=== PATIENT | male | born 1990 | race Caucasian/White ===

== ENCOUNTER 2018-08-15 21:14 | Emergency (ER) | payer MEDICAID, SELFPAY ==
[2018-08-15 21:14] VITALS: BP 147/84; PULSE 84; RESP 18; TEMP 36.6; O2SAT 97; BMI 35.7
[2018-08-15 21:20] VITALS: BP 152/70; PULSE 80; RESP 14; O2SAT 98
--- NOTE | 2018-08-15 21:36 | RAD_ITS ---
STUDY: X-RAY - UNILATERAL RIBS ( RIGHT ) WITH CHEST REASON FOR EXAM: Male, 28 years old. Fall. Lower axillary rib pain. TECHNIQUE - RIBS: 4 view(s) of the ribs. TECHNIQUE - CHEST: Single PA view of the chest. COMPARISON: None. FINDINGS - RIBS: Normal visualized ribs without a demonstrated fracture. FINDINGS - CHEST: The lungs are clear and expanded. No pneumothorax. There is no demonstrated pleural abnormality. Normal size heart. Normal mediastinum and george. Normal visualized pulmonary arteries. Normal visualized aortic arch and descending thoracic aorta. Normal visualized thoracic spine. Normal visualized ribs, clavicles, and shoulders. There is no demonstrated abnormality of the visualized soft tissue structures of the upper abdomen. RAD/Ribs Uni Min 3V w/PA Chest IMPRESSION: RIBS: Normal x-ray examination of the ribs. CHEST: Normal x-ray examination of the chest. Electronically Signed: Benjie Melo DO at 22:00 EDT Tel [phone], Service support ,
--- NOTE | 2018-08-15 21:54 | ED.DCSUM_ITS ---
- ER Visit Summary Date of Service: 08/15/18 Chief Complaint: Fall History of Present Illness: The patient is a 28 M presenting after fall. Patient states this occurred 2 weeks ago. He slipped and fell off a ramp. He states the ramp was not high off the ground. He did not hit his head or lose consciousness. He fell hitting his back. He states he later developed pain right lower chest wall. He states it is worse with coughing. He denies shortness of breath. Denies pleuritic chest pain. Denies abdominal pain. Denies other complaints. Physical Examination: Vitals are stable. Patient is afebrile. HR 80. Pulse ox 98% room air. Alert no acute distress. HEENT exam is unremarkable. Neck is supple. Lungs are clear and equal bilaterally. Right lower chest wall tenderness with no crepitus Heart is regular rate and rhythm. Abdomen is soft nontender nondistended. No guarding or rebound Extremities are unremarkable. Skin is warm and dry. No focal neurologic deficit. Remainder of exam is unremarkable. Emergency Department Course and Treatment: Right rib series shows no acute process. Patient was given an incentive spirometer. He was given prescription for Naprosyn. Advised to follow-up with his primary care physician. Advised return ED if worsening complaints. Disposition: Discharge home Impression: Rib contusion This note was generated with [employer] dictation software. It may contain incorrect words, spelling, and punctuation that were not noted in review of the chart prior to signing ED Disposition - Plan for ED Patient: Instructions: ED Contusion Rib Prescriptions: Naproxen [Naprosyn] 500 mg PO BID PRN #20 tablet Referrals: David Craven MD [Primary Care Provider] -
== END 2018-08-15 22:42 | disposition home or self-care (01) ==
LOC: ED 21:42
PROVIDERS: Emergency Provider Emergency Medicine; Family Provider Family Medicine; PCP Family Medicine
DX: S20.211A Contusion of right front wall of thorax, initial encounter (principal); W17.89XA Other fall from one level to another, initial encounter; Y93.9 Activity, unspecified; Y92.9 Unspecified place or not applicable; Y99.9 Unspecified external cause status; F17.220 Nicotine dependence, chewing tobacco, uncomplicated
CPT/HCPCS: 71101; 99282

== ENCOUNTER 2023-07-05 20:09 | Emergency (ER) | payer MEDICAID, SELFPAY ==
[2023-07-05 20:09] VITALS: BP 165/90; PULSE 83; RESP 18; TEMP 36.8; O2SAT 98; BMI 38.7
--- NOTE | 2023-07-05 20:19 | EX.ED.UPPERE ---
HPI History of Present Illness Chief Complaint: Upper Extremity Injury Detail of Chief Complaint: Right elbow pain Informant: patient Occured/Mechanism Comment: Patient states paged started after he carried groceries a couple of days ago Onset/Context/Timing Onset: Days Context: Gradual Onset Timing: Continuous Quality of Pain: Dull and Aching Location: Right elbow Current Severity: Mild Maximum Severity: Moderate Worsened by: Extension Relieved by: Nothing Associated Symptoms Associated Symptoms: Positive for - (Unable to extend to 180 degrees); Negative for Parasthesia, Weakness or Loss of Funtion Narrative Narrative: Patient is a 32-year-old [id number] male who presents with right elbow pain that started a couple days ago after carrying groceries. He denies history of direct trauma. He denies history of gout or pseudogout. He denies fever, chills night sweats. He denies paresthesia, anesthesia or motor weakness of the upper extremities. He denies neck pain. He has no contraindication to NSAIDs. Prior similar symptoms: No Recent Illness/Hospitalization: No PFSH PFSH Home Medications dextroamphetamine-amphetamine 30 mg tablet 30 mg PO DAILY 06/19/15 [History Last Taken Unknown] naproxen 500 mg tablet 500 mg PO BID PRN #20 tabs 08/15/18 [Rx Last Taken Unknown] naproxen 500 mg tablet 500 mg PO BID #14 tabs 07/05/23 [Rx Last Taken Unknown] Allergy/AdvReac Type Severity Reaction Status Date / Time Penicillins AdvReac Other Verified 07/05/23 20:11 Social History (Updated 07/05/23 @ 20:[address] Castro Meadows MD) household members: none Smoking Status: Former smoker ROS ROS ED Constitutional Constitutional ED: Denies chills, fever(s), subjective, sweats or weight loss Cardiovascular Cardiovascular: Denies chest pain or palpitations Respiratory/Chest Respiratory/Chest: Denies cough, dyspnea or dyspnea on exertion Gastrointestinal Gastrointestinal: Denies nausea or vomiting Musculoskeletal Musculoskeletal: Denies back pain, myalgias or neck pain Integumentary Denies rash Neurologic Neurologic: Denies paresthesias or weakness Hematologic/Lymphatic Hematologic/Lymphatic: Denies easy bleeding or easy bruising EXAM Physical Exam Const Vital Signs: 07/05/23 20:09 Temperature 98.3 F Temperature Source Temporal Pulse Rate 83 Respiratory Rate 18 Blood Pressure 165/90 H Blood Pressure Mean 115 Pulse Ox 98 Oxygen Delivery Method Room Air Positive well nourished, well developed and obese General Appearance ED: well developed and NAD Nutritional Appearance: obese HEENT Reports moist mucous membranes normocephalic and atraumatic Eyes PERRL and EOMs intact bilaterally Eyes Narrative: Sclera is anicteric. Neck full ROM and supple Neck Narrative: No pain to palpation. Resp normal respiratory effort and clear to auscultation bilaterally Cardio regular rate, regular rhythm, S1 normal heart sound, S2 normal heart sound and no murmurs Extremity Negative for full ROM Extremity Narrative: There appears to be swelling. Arm was measured and there is no difference tween the right and left. Patient is able to extend to approximately 160 to 170 degrees. He is able to extend 180 degrees left side. There is no pain ovation over the lateral medial epicondyle, olecranon process or radial head with supination pronation. There is no pain ovation over the midportion of the radius or ulna or the distal third of the radius or ulna. There is no skin discoloration. There is no rash. There is no epitrochlear or axillar lymphadenopathy. There is no lymphangitis. Neuro oriented x3, CN's II-XII intact bilaterally, moves all extremities, no focal motor deficits and no sensory deficits noted Neuro Narrative: Axillary, median, radial and ulnar function intact. Sensorium / Orientation: alert Psych mental status grossly normal Skin General Skin Exam: Negative for petechiae Lesions: no lesions Rashes: no rashes Trauma: no lacerations or abrasions MDM MDM MDM Narrative Medical decision making narrative: With limited range of motion and complaint of elbow pain will obtain x-ray to determine if there is an effusion versus fracture or other abnormality may explain his symptoms. Since he is not febrile blood work was not obtained. And since he does not have reproducible pain doubt crystal induced or pyogenic arthritis. Radiography Chest X-Ray - ED: Read by ED Physician (Three-view x-ray of the right elbow reveals no fracture, subluxation or dislocation. There is no anterior posterior fat pad. There is no degenerative changes noted.) Treatment and Re-Evaluation Narrative: Since patient has no contraindication we will treat with NSAIDs. He was discharged to home. Discharge Plan Triage Chief Complaint: Upper Extremity Injury ED Provider: Castro Meadows Dx/Rx/DC Orders Clinical Impression: History of ADHD, Elbow pain, right Instructions: ED RICE Prescriptions: New naproxen 500 mg tablet 500 mg PO BID Qty: 14 0RF No Action dextroamphetamine-amphetamine 30 MG tablet 30 mg PO DAILY naproxen 500 MG tablet 500 mg PO BID PRN Qty: 20 0RF Primary Care Provider: David Craven Referrals: David Craven MD [Primary Care Provider] - 1 Week if not improving Disposition Disposition: Home, Self Care
--- NOTE | 2023-07-05 20:25 | RAD_ITS ---
INDICATION: Injury/Pain EXAMINATION/TECHNIQUE: X-RAY - RIGHT XR Elbow Min 3 Views COMPARISON: No relevant prior comparison study available FINDINGS: SOFT TISSUES: No soft tissue swelling or gas. No radiopaque foreign body. BONES/JOINTS: There is no displacement of the anterior or posterior fat pads. No acute fracture or subluxation. Normal alignment. Preservation of the joint space. No sclerotic or destructive changes observed. RAD/Elbow min 3 Views IMPRESSION: No acute fracture or dislocation. Electronically Signed: Tae Baer MD at 21:25 EDT ,
[2023-07-05] MEDS: Naproxen 500 MG Tablet PO (20:33)
[2023-07-05 20:46] VITALS: BP 150/88; PULSE 83; RESP 18; TEMP 36.8; O2SAT 98
== END 2023-07-05 20:46 | disposition home or self-care (01) ==
PROVIDERS: Emergency Provider Emergency Medicine; PCP Family Medicine; Visit Provider Emergency Medicine
DX: M25.521 Pain in right elbow (principal); F90.9 Attention-deficit hyperactivity disorder, unspecified type; E66.9 Obesity, unspecified; Z79.899 Other long term (current) drug therapy; Z87.891 Personal history of nicotine dependence
CPT/HCPCS: 73080; 99282